=== PATIENT | female | born 1955 | race Caucasian/White ===

== ENCOUNTER 2018-04-03 05:34 | Inpatient (IN) | payer MEDICAID ==
[2018-04-03] VITALS (54 sets, daily range): BP systolic 39–159; BP diastolic 24–86
[~2018-04-03] VITALS: Ht 162.6 cm; Wt 92.5 kg
[2018-04-03] MEDS ORDERED: LACTATED RINGERS 1,000 ML IV SCH (06:15)
[2018-04-03] MEDS ORDERED: GELATIN SPONGE,ABSORBABLE 12-7MM SPONGE ONE (06:20)
[2018-04-03] MEDS ORDERED: THROMBIN (BOVINE) 5000 UNITS/VIAL TOP ONE ×3 (06:20→08:55)
[2018-04-03] MEDS ORDERED: LIDOCAINE HCL/EPINEPHRINE 1%-EPI 1:100,000 20 ML VIAL ONE (06:21)
[2018-04-03] MEDS ORDERED: BACITRACIN 50,000 UNITS/VIAL ONE (06:21)
[2018-04-03] MEDS ORDERED: FENTANYL CITRATE/PF 50MCG/ML 2ML VIAL ONE (07:02)
[2018-04-03] MEDS ORDERED: ROCURONIUM BROMIDE 10MG/ML VIAL 5ML IV ONE (07:02)
[2018-04-03] MEDS ORDERED: MIDAZOLAM HCL 2 MG/2 ML VIAL ONE (07:02)
[2018-04-03] MEDS ORDERED: GLYCOPYRROLATE 0.2 MG/ML 2ML VIAL ONE (07:02)
[2018-04-03] MEDS ORDERED: PROPOFOL 200MG/20ML VIAL IV ONE (07:02)
[2018-04-03] MEDS ORDERED: NEOSTIGMINE METHYLSULFATE 1MG/ML 10 ML VIAL ONE (07:02)
[2018-04-03] MEDS ORDERED: ESMOLOL HCL 10MG/ML 10ML VIAL IV ONE (07:03)
[2018-04-03] MEDS ORDERED: METOCLOPRAMIDE HCL 10MG/2ML VIAL ONE (07:03)
[2018-04-03] MEDS ORDERED: ONDANSETRON HCL 4MG/2ML INJ ONE (07:03)
[2018-04-03] MEDS ORDERED: DEXAMETHASONE 4MG/ML 1ML VIAL ONE (07:03)
[2018-04-03] MEDS ORDERED: SUCCINYLCHOLINE CHLORIDE 200MG/10ML IV ONE (07:03)
[2018-04-03] MEDS ORDERED: CEFAZOLIN SODIUM 1000MG/VIAL ONE (07:03)
[2018-04-03] MEDS ORDERED: NICARDIPINE 100 MG in SODIUM CHLORIDE 0.9% 60 ML IV PRN (07:30)
[2018-04-03] MEDS ORDERED: ASPI-1160 PO (07:59)
[2018-04-03] MEDS ORDERED: LISI-649 PO (07:59)
[2018-04-03 08:40] LABS: CLARITY URINE CLEAR (CLEAR); COLOR URINE YELLOW (YELLOW); KETONES URINE NEGATIVE (NEGATIVE); LEUKOCYTE ESTERASE URINE NEGATIVE (NEGATIVE); NITRITE URINE NEGATIVE (NEGATIVE); OCCULT BLOOD URINE 1+ (NEGATIVE); PROTEIN URINE NEGATIVE (NEGATIVE); SPECIFIC GRAVITY URINE 1.021 (1.005-1.030)
[2018-04-03] MEDS ORDERED: LABETALOL HCL 5MG/ML VIAL 20ML IV ONE (08:47)
[2018-04-03] MEDS ORDERED: MORPHINE SULFATE 4 MG/ML CPJ (NOT FOR IM USE) IV PRN (09:45)
[2018-04-03] MEDS ORDERED: FENTANYL CITRATE/PF 50MCG/ML 2ML VIAL IV PRN (09:45)
[2018-04-03] MEDS ORDERED: HYDROMORPHONE HCL/PF 2MG/ML CPJ IV PRN (09:45)
[2018-04-03] MEDS ORDERED: MEPERIDINE HCL/PF 25MG/ML CPJ IV PRN (09:45)
[2018-04-03] MEDS ORDERED: ONDANSETRON HCL 4MG/2ML INJ IV PRN (09:45)
[2018-04-03] MEDS ORDERED: PHENYLEPHRINE HCL 10 MG/ML 1ML (IV VIAL) IV ONE (09:47)
[2018-04-03] MEDS ORDERED: SODIUM CHLORIDE 0.9% 10ML VIAL ONE (09:47)
[2018-04-03] MEDS ORDERED: NALOXONE INJ IV PRN (11:00)
[2018-04-03] MEDS: DEXT 5%/LACTATED RINGERS 1,000 ML IV SCH ×2 (11:00→21:50)
[2018-04-03] MEDS ORDERED: DIPHENHYDRAMINE INJ IV PRN (11:00)
[2018-04-03] MEDS ORDERED: ONDANSETRON INJ IV PRN (11:00)
[2018-04-03] MEDS: HYDROMORPHONE PCA 10MG/50ML IV PRN (11:12)
[2018-04-03] MEDS ORDERED: IPRATROPIUM/ALBUTEROL 0.5-3(2.5)MG/3ML NEB HHN PRN (11:30)
[2018-04-03] MEDS ORDERED: CEFAZOLIN SODIUM 1000MG/VIAL IV SCH (14:00)
[2018-04-03] MEDS: DEXAMETHASONE 4MG/ML 1ML VIAL IV SCH ×2 (14:14→18:37)
[2018-04-03] MEDS: CEFAZOLIN 1000MG PREMIX 50 ML IV SCH (16:12)
[2018-04-03 16:46] LABS: HEMATOCRIT. 38.2 % (36.0-48.0); HEMOGLOBIN. 12.7 g/dL (12.0-16.0); MEAN CORPUSCULAR HEMOGLOBIN 29.5 pg (28.0-32.0); PLATELET 304 x1000/uL (130-400); RED CELL DISTRIBUTION WIDTH 12.6 % (11.6-14.6)
[2018-04-03 16:51] LABS: CHLORIDE 104 mEq/L (98-107)
[2018-04-03 16:58] LABS: LDL CHOLESTEROL 94 mg/dL (5-100)
[2018-04-03 16:59] LABS: HDL CHOLESTEROL 58 mg/dL (40-59)
[2018-04-03 17:10] LABS: PLATELET ESTIMATE NORMAL
[2018-04-04] VITALS (64 sets, daily range): BP systolic 85–133; BP diastolic 38–78
[2018-04-04] MEDS: DEXAMETHASONE 4MG/ML 1ML VIAL IV SCH ×3 (00:13→12:00)
[2018-04-04] MEDS: CEFAZOLIN 1000MG PREMIX 50 ML IV SCH ×4 (01:03→23:05)
[2018-04-04 06:11] LABS: HEMATOCRIT. 35.3 % (36.0-48.0); HEMOGLOBIN. 11.6 g/dL (12.0-16.0); MEAN CORPUSCULAR HEMOGLOBIN 29.3 pg (28.0-32.0); MEAN PLATELET VOLUME 9.6 fl (7.4-10.4); PLATELET 274 x1000/uL (130-400); RED BLOOD CELL COUNT 3.97 mill/uL (4.2-5.4); RED CELL DISTRIBUTION WIDTH 12.4 % (11.6-14.6)
[2018-04-04 07:45] LABS: CHLORIDE 104 mEq/L (98-107)
[2018-04-04 07:54] LABS: PHOSPHORUS 3.2 mg/dL (2.5-4.9)
[2018-04-04] MEDS: HYDROMORPHONE PCA 10MG/50ML IV PRN (08:44)
[2018-04-04] MEDS: PANTOPRAZOLE SODIUM 40 MG/VIAL IV SCH (08:47)
[2018-04-04] MEDS: DEXT 5%/LACTATED RINGERS 1,000 ML IV SCH ×2 (08:47→13:59)
[2018-04-04 08:50] LABS: PLATELET ESTIMATE NORMAL
[2018-04-04] MEDS: HYDROCODONE/APAP 7.5/325MG 1 TAB TABLET PO PRN (23:05)
[2018-04-05] VITALS (11 sets, daily range): BP systolic 98–168; BP diastolic 48–73
[2018-04-05] MEDS: HYDROCODONE/ACETAMINOPHEN 5/325MG TABLET PO PRN (05:16)
[2018-04-05 05:53] LABS: CHLORIDE 104 mEq/L (98-107)
[2018-04-05 05:54] LABS: HEMATOCRIT. 32.6 % (36.0-48.0); HEMOGLOBIN. 10.7 g/dL (12.0-16.0); MEAN CORPUSCULAR HEMOGLOBIN 29.6 pg (28.0-32.0); MEAN CORPUSCULAR VOLUME 90.1 fL (81.0-99.0); MEAN PLATELET VOLUME 9.7 fl (7.4-10.4); PLATELET 248 x1000/uL (130-400); RED BLOOD CELL COUNT 3.61 mill/uL (4.2-5.4); RED CELL DISTRIBUTION WIDTH 12.5 % (11.6-14.6)
[2018-04-05 07:49] LABS: PLATELET ESTIMATE NORMAL
[2018-04-05] MEDS: PANTOPRAZOLE SODIUM 40 MG/VIAL IV SCH (09:41)
[2018-04-05] MEDS: LISINOPRIL 10MG TABLET PO SCH ×2 (09:41→21:31)
[2018-04-05] MEDS: MORPHINE SULFATE 4 MG/ML CPJ (NOT FOR IM USE) IV PRN ×2 (09:41→21:31)
[2018-04-05] MEDS: CEFAZOLIN 1000MG PREMIX 50 ML IV SCH ×2 (15:43→22:54)
[2018-04-05] MEDS ORDERED: LACTULOSE 20G/30ML UDC PO NR (16:00)
[2018-04-05] MEDS ORDERED: BISACODYL 5MG TABLET PO PRN (16:00)
[2018-04-05] MEDS ORDERED: DOCUSATE SODIUM 250MG CAPSULE PO NR (16:00)
[2018-04-06] VITALS: BP 111/57
[2018-04-06 04:00] VITALS: BP 119/48
[2018-04-06] MEDS: HYDROCODONE/APAP 7.5/325MG 1 TAB TABLET PO PRN (04:28)
[2018-04-06 06:44] LABS: BASOPHILS % 0.4 % (0.0-2.0); EOSINOPHILS % 0.6 % (0.0-5.0); HEMATOCRIT. 32.8 % (36.0-48.0); HEMOGLOBIN. 10.8 g/dL (12.0-16.0); LYMPHOCYTES % 21.9 % (20.0-50.0); MEAN CORPUSCULAR HEMOGLOBIN 29.5 pg (28.0-32.0); MEAN CORPUSCULAR VOLUME 89.4 fL (81.0-99.0); MEAN PLATELET VOLUME 8.5 fl (7.4-10.4); MONOCYTES % 11.6 % (2.0-8.0); NEUTROPHILS % 65.5 % (40.0-76.0); PLATELET 255 x1000/uL (130-400); RED BLOOD CELL COUNT 3.67 mill/uL (4.2-5.4); RED CELL DISTRIBUTION WIDTH 12.1 % (11.6-14.6)
[2018-04-06 07:00] VITALS: BP 127/62
[2018-04-06 07:08] LABS: CHLORIDE 104 mEq/L (98-107)
[2018-04-06] MEDS: FAMOTIDINE 20MG TABLET PO SCH ×2 (08:47→17:31)
[2018-04-06] MEDS: LISINOPRIL 10MG TABLET PO SCH ×2 (08:48→22:05)
[2018-04-06] MEDS: DOCUSATE SODIUM SUGAR FREE 100MG/10ML UDC NG SCH (08:49)
[2018-04-06] MEDS: MORPHINE SULFATE 4 MG/ML CPJ (NOT FOR IM USE) IV PRN (10:49)
[2018-04-06 12:00] VITALS: BP 137/70
[2018-04-06 15:50] VITALS: BP 111/60
[2018-04-06 17:16] LABS: CLARITY URINE CLEAR (CLEAR); COLOR URINE YELLOW (YELLOW); KETONES URINE NEGATIVE (NEGATIVE); LEUKOCYTE ESTERASE URINE NEGATIVE (NEGATIVE); NITRITE URINE NEGATIVE (NEGATIVE); OCCULT BLOOD URINE 3+ (NEGATIVE); PH URINE 7.5 (4.5-8.0); PROTEIN URINE NEGATIVE (NEGATIVE); SPECIFIC GRAVITY URINE 1.003 (1.005-1.030)
[2018-04-06 20:00] VITALS: BP 124/63
[2018-04-07 04:00] VITALS: BP 134/70
[2018-04-07 06:56] LABS: BASOPHILS % 0.4 % (0.0-2.0); EOSINOPHILS % 1.6 % (0.0-5.0); HEMATOCRIT. 35.1 % (36.0-48.0); HEMOGLOBIN. 11.6 g/dL (12.0-16.0); LYMPHOCYTES % 21.7 % (20.0-50.0); MEAN CORPUSCULAR HEMOGLOBIN 29.2 pg (28.0-32.0); MEAN CORPUSCULAR VOLUME 88.4 fL (81.0-99.0); MEAN PLATELET VOLUME 8.6 fl (7.4-10.4); MONOCYTES % 9.2 % (2.0-8.0); NEUTROPHILS % 67.1 % (40.0-76.0); PLATELET 276 x1000/uL (130-400); RED BLOOD CELL COUNT 3.97 mill/uL (4.2-5.4); RED CELL DISTRIBUTION WIDTH 12.7 % (11.6-14.6)
[2018-04-07 07:21] LABS: CHLORIDE 105 mEq/L (98-107)
[2018-04-07 08:00] VITALS: BP 122/63
[2018-04-07] MEDS: LISINOPRIL 10MG TABLET PO SCH ×2 (08:57→22:18)
[2018-04-07] MEDS: FAMOTIDINE 20MG TABLET PO SCH ×2 (08:58→17:47)
[2018-04-07] MEDS: DOCUSATE SODIUM SUGAR FREE 100MG/10ML UDC NG SCH (08:58)
[2018-04-07] MEDS: HYDROCODONE/APAP 7.5/325MG 1 TAB TABLET PO PRN (09:14)
[2018-04-07 12:00] VITALS: BP 130/69
[2018-04-07] MEDS: MORPHINE SULFATE 4 MG/ML CPJ (NOT FOR IM USE) IV PRN (14:35)
[2018-04-07 16:00] VITALS: BP 113/72
[2018-04-07 20:00] VITALS: BP 136/72
[2018-04-08] VITALS: BP 117/56
[2018-04-08 04:00] VITALS: BP 124/70
[2018-04-08 08:00] VITALS: BP 115/56
[2018-04-08] MEDS: DOCUSATE SODIUM SUGAR FREE 100MG/10ML UDC NG SCH (09:00)
[2018-04-08] MEDS: FAMOTIDINE 20MG TABLET PO SCH ×2 (09:00→17:55)
[2018-04-08] MEDS: LISINOPRIL 10MG TABLET PO SCH ×2 (09:00→21:48)
[2018-04-08] MEDS: HYDROCODONE/ACETAMINOPHEN 5/325MG TABLET PO PRN ×2 (09:21→21:56)
[2018-04-08 10:11] LABS: CHLORIDE 106 mEq/L (98-107)
[2018-04-08 10:30] LABS: BASOPHILS % 0.3 % (0.0-2.0); EOSINOPHILS % 2.2 % (0.0-5.0); HEMATOCRIT. 36.5 % (36.0-48.0); HEMOGLOBIN. 12.2 g/dL (12.0-16.0); MEAN CORPUSCULAR HEMOGLOBIN 29.8 pg (28.0-32.0); MEAN CORPUSCULAR VOLUME 89.1 fL (81.0-99.0); MEAN PLATELET VOLUME 8.4 fl (7.4-10.4); NEUTROPHILS % 72.5 % (40.0-76.0); PLATELET 257 x1000/uL (130-400); RED CELL DISTRIBUTION WIDTH 12.7 % (11.6-14.6)
[2018-04-08 12:00] VITALS: BP 124/63
[2018-04-08 16:00] VITALS: BP 115/68
[2018-04-08 20:00] VITALS: BP 136/59
[2018-04-09] VITALS: BP 121/74
[2018-04-09 04:00] VITALS: BP 119/71
[2018-04-09] MEDS: HYDROCODONE/ACETAMINOPHEN 5/325MG TABLET PO PRN ×2 (04:21→13:02)
[2018-04-09 08:00] VITALS: BP 111/59
[2018-04-09] MEDS: FAMOTIDINE 20MG TABLET PO SCH ×2 (08:58→17:00)
[2018-04-09] MEDS: DOCUSATE SODIUM SUGAR FREE 100MG/10ML UDC NG SCH (08:58)
[2018-04-09] MEDS: LISINOPRIL 10MG TABLET PO SCH ×2 (08:59→22:43)
[2018-04-09 12:00] VITALS: BP 119/62
[2018-04-09 16:00] VITALS: BP 113/68
[2018-04-09 20:00] VITALS: BP 117/58
[2018-04-10] VITALS: BP 107/65
[2018-04-10 04:00] VITALS: BP 110/61
[2018-04-10 06:41] LABS: BASOPHILS % 0.4 % (0.0-2.0); EOSINOPHILS % 2.4 % (0.0-5.0); HEMATOCRIT. 35.8 % (36.0-48.0); HEMOGLOBIN. 11.9 g/dL (12.0-16.0); LYMPHOCYTES % 12.1 % (20.0-50.0); MEAN CORPUSCULAR HEMOGLOBIN 29.6 pg (28.0-32.0); MEAN CORPUSCULAR VOLUME 89.5 fL (81.0-99.0); MEAN PLATELET VOLUME 8.8 fl (7.4-10.4); MONOCYTES % 7.6 % (2.0-8.0); NEUTROPHILS % 77.5 % (40.0-76.0); PLATELET 300 x1000/uL (130-400); RED CELL DISTRIBUTION WIDTH 12.5 % (11.6-14.6)
[2018-04-10 06:53] LABS: CHLORIDE 101 mEq/L (98-107)
[2018-04-10 08:00] VITALS: BP 124/70
[2018-04-10] MEDS ORDERED: HYDROCODONE/ACETAMINOPHEN 5/325MG TABLET PO PRN (09:00)
[2018-04-10] MEDS: DOCUSATE SODIUM SUGAR FREE 100MG/10ML UDC NG SCH (09:45)
[2018-04-10] MEDS: POLYETHYLENE GLYCOL 3350 (17GM) 1 DOSE PACK PO SCH (09:46)
[2018-04-10] MEDS: LISINOPRIL 10MG TABLET PO SCH ×2 (09:46→21:16)
[2018-04-10] MEDS: FAMOTIDINE 20MG TABLET PO SCH ×2 (09:46→17:17)
[2018-04-10] MEDS: HYDROCODONE/APAP 7.5/325MG 1 TAB TABLET PO PRN (10:10)
[2018-04-10 12:07] VITALS: BP 118/67
[2018-04-10] MEDS: LACTULOSE 20G/30ML UDC PO SCH ×3 (14:31→20:58)
[2018-04-10 15:32] VITALS: BP 118/72
[2018-04-11] VITALS: BP 129/60
[2018-04-11] MEDS: HYDROCODONE/APAP 7.5/325MG 1 TAB TABLET PO PRN ×3 (03:25→15:57)
[2018-04-11 04:00] VITALS: BP 116/55
[2018-04-11 06:21] LABS: CHLORIDE 101 mEq/L (98-107)
[2018-04-11 06:33] LABS: BASOPHILS % 0.4 % (0.0-2.0); EOSINOPHILS % 1.5 % (0.0-5.0); HEMOGLOBIN. 11.8 g/dL (12.0-16.0); MEAN CORPUSCULAR HEMOGLOBIN 29.4 pg (28.0-32.0); MEAN CORPUSCULAR VOLUME 89.5 fL (81.0-99.0); MEAN PLATELET VOLUME 8.7 fl (7.4-10.4); MONOCYTES % 9.3 % (2.0-8.0); NEUTROPHILS % 77.8 % (40.0-76.0); PLATELET 315 x1000/uL (130-400); RED BLOOD CELL COUNT 4.02 mill/uL (4.2-5.4); RED CELL DISTRIBUTION WIDTH 12.7 % (11.6-14.6)
[2018-04-11 08:00] VITALS: BP 108/63
[2018-04-11] MEDS: POLYETHYLENE GLYCOL 3350 (17GM) 1 DOSE PACK PO SCH (08:40)
[2018-04-11] MEDS: FAMOTIDINE 20MG TABLET PO SCH ×2 (08:40→17:36)
[2018-04-11] MEDS: DOCUSATE SODIUM SUGAR FREE 100MG/10ML UDC NG SCH (08:40)
[2018-04-11] MEDS: LISINOPRIL 10MG TABLET PO SCH (08:40)
[2018-04-11] MEDS ORDERED: BISACODYL 10MG SUPP PR SCH (09:00)
[2018-04-11 12:00] VITALS: BP 106/59
[2018-04-11 16:00] VITALS: BP 115/58
[2018-04-11 17:37] LABS: CLARITY URINE CLOUDY (CLEAR); COLOR URINE DARK YELLOW (YELLOW); KETONES URINE TRACE (NEGATIVE); LEUKOCYTE ESTERASE URINE 2+ (NEGATIVE); NITRITE URINE NEGATIVE (NEGATIVE); OCCULT BLOOD URINE 3+ (NEGATIVE); PH URINE 5.5 (4.5-8.0); PROTEIN URINE 2+ (NEGATIVE); SPECIFIC GRAVITY URINE 1.024 (1.005-1.030)
[2018-04-11 18:18] VITALS: BP 115/58
[2018-04-11] MEDS ORDERED: LEVO750T46 MT (20:00)
[2018-04-11] MEDS ORDERED: DOCU50LI14 PO (20:00)
[2018-04-11] MEDS ORDERED: LISI10TA5 PO (20:00)
== END 2018-04-11 22:15 | DRG 23 ==
LOC: OR 05:34 → MICUSO 05:35 → 6EST 04-05 05:55
PROVIDERS: ADMIT Internal Medicine; ATTEND Internal Medicine
PROC: 00BX0ZZ Excision of Thoracic Spinal Cord, Open Approach (ICD-10-PCS; principal; 2018-04-03)
PROC: 01N80ZZ Release Thoracic Nerve, Open Approach (ICD-10-PCS; 2018-04-03)
DX: D32.1 Benign neoplasm of spinal meninges (principal); G82.20 Paraplegia, unspecified; K59.2 Neurogenic bowel, not elsewhere classified; J39.8 Other specified diseases of upper respiratory tract; G95.20 Unspecified cord compression; S24.102S Unspecified injury at T2-T6 level of thoracic spinal cord, sequela; N31.9 Neuromuscular dysfunction of bladder, unspecified; I10 Essential (primary) hypertension; D64.9 Anemia, unspecified; D72.829 Elevated white blood cell count, unspecified; E66.9 Obesity, unspecified; H91.90 Unspecified hearing loss, unspecified ear; K59.00 Constipation, unspecified; K80.20 Calculus of gallbladder without cholecystitis without obstruction; X58.XXXA Exposure to other specified factors, initial encounter; Z79.82 Long term (current) use of aspirin; Z86.011 Personal history of benign neoplasm of the brain; Z99.3 Dependence on wheelchair; Y93.89 Activity, other specified; Y92.89 Other specified places as the place of occurrence of the external cause; Y99.8 Other external cause status
CPT/HCPCS: 36415; 71045; 72070; 72146; 74018; 76000; 76700; 80048; 80061; 83036; 83735; 84100; 84443; 86850; 86900; 87077; 87186; 88305; 88307; 88311; 93005; 93970; 97110; 97116; 97162; 97166; 97530; 97535; C9113; J0330; J0690; J1100; J1170; J1200; J2250; J2270; J2370; J2405; J2704; J2710; J2765; J3010; J3490; J7050; J7121